=== PATIENT | male | born 1980 | race Caucasian/White ===

== ENCOUNTER 2017-03-01 02:25 | Observation (INO) | payer OTHER ==
[~2017-03-01] VITALS: Ht 193 cm; Wt 130.0 kg
[2017-03-01] VITALS (8 sets, daily range): BP systolic 99–117; BP diastolic 65–73; PULSE 71–92; RESP 16–20; TEMP 97.9–98.2; O2SAT 94–97
[~2017-03-01 02:25] MED LIST: IBUP1TAB7 PO; ORPH100T PO; TRAM50TA PO
[2017-03-01 06:58] LABS: CREATINE KINASE 65 U/L (39-308)
--- NOTE | 2017-03-01 08:45 | EKG ---
Date Performed: 03/01/2017 Time Performed: 06:10:43 PTAGE: 36 years EKG: Sinus rhythm NORMAL ECG No significant change from prior electrocardiogram. PREVIOUS TRACING : 03/01/2017 03.09 DOCTOR: Jasper Valdez Interpretating Date/Time 03/01/2017 08:44:06
[2017-03-01] MEDS ORDERED: NITROGLYCERIN 0.4 MG SL 25 TABS/BTL SL PRN (09:30)
[2017-03-01] MEDS ORDERED: SODIUM CHLORIDE 0.9% FLUSH 10 ML FLUSH IV FLUSH PRN (09:30)
[2017-03-01] MEDS ORDERED: ONDANSETRON HCL 4 MG/2 ML VIAL IV PUSH PRN (09:30)
[2017-03-01] MEDS ORDERED: ACETAMINOPHEN 500 MG CPLT PO PRN (09:30)
--- NOTE | 2017-03-01 09:30 | HHI.HP ---
HPI Primary Care Physician Non-Staff Chief Complaint Chest pain History of Present Illness 36-year-old male with history of COPD and current smoker presents to emergency room for further evaluation of chest pain. Onset last evening. Location substernal. Initially felt discomfort may be indigestion therefore took antacids without relief. Duration constant. No radiation of pain. No associated symptoms of nausea, vomiting, dyspnea, or diaphoresis. No known precipitating or relieving factors. Endorses more pain in the past. Seen and evaluated the last hospital last year complete an exercise stress test which was unremarkable. At that time he was told he had COPD. Review of Systems General: No fatigue,weakness, fever, chills, or recent illness change in appetite HEENT: No CARVAJAL, no vision changes, no nasal congestion or drainage, no dysphasia CV: As stated above. No current chest pain or pressure. RESP: No SOB, cough, wheeze, or recent URI. History of COPD. Current smoker. GI: No nausea or vomiting, bowel changes, diarrhea, constipation, pain, distention. No unintentional weight gain or weight loss : No dysuria, urgency, frequency EXT: No lower leg edema MS: No discomfort or change in ROM NEURO: No dizziness, difficulty with balance, LOC, motor/sensory deficits PSYCH: No anxiety, depression SKIN: No rashes, no concerning lesions Past Family Social History Allergies: Coded Allergies: No Known Allergies (Verified Allergy, Unknown, 03/01/17) Past Medical History COPD, kidney stones Past Surgical History Tonsillectomy Reported Medications Reported Meds & Active Scripts Active No Active Prescriptions or Reported Medications Family History Father multiple strokes beginning in early 50s. Social History No known hypertension and attention or diabetes. Known hyperlipidemia. Current smoker 1 pack/daily. Past cardiac testing Exercise stress test one year ago reported to be unremarkable. This is completed [place], [place] Physical Exam Vital Signs Vital Signs Date Time Temp Pulse Resp B/P (MAP) Pulse Ox O2 Delivery O2 Flow Rate FiO2 03/01/17 09:01 92 20 101/73 (82) 97 Nasal Cannula 2.00 03/01/17 07:16 71 16 99/66 (77) 97 Nasal Cannula 2.00 03/01/17 06:30 96 03/01/17 05:37 97 Room Air 03/01/17 05:33 98.1 82 16 112/65 (81) 94 Physical Exam GENERAL: Alert WN, WD, NAD, pleasant, male who appears older than stated age HEAD: NC, AT CV: RRR, without murmur, rub, gallop, no JVD, S1-S2 no S3-S4. RESP: Clear lungs throughout bilateral, no crackles, wheeze, rhonchi, symmetrical chest rise, nonlabored, able to speak in full sentences ABD: Soft, NT, ND, no masses, positive bowel tones EXT: Pulses +24, no dependent edema MS: Normal tone 4 extremities, no obvious deformities, full range of motion NEURO: CN II through CN XII grossly intact, motor strength 5/5 PSYCH: A+O 3, pleasant affect, appropriate speech, mood, insight and judgment SKIN: Normal turgor, normal texture, no lesions, no rashes Laboratory CBC WBC 13.9 otherwise unremarkable. CMP random glucose 127, otherwise unremarkable. x3 troponins less than 0.02 Laboratory Tests Test 03/01/17 06:12 Total Creatine Kinase 65 Troponin I LESS THAN 0.02 Imaging Chest xray interpreted by radiologist as no acute disease. Course EKG NSR, no st t segment changes Caprini VTE Risk Assessment Caprini VTE Risk Assessment: No/Low Risk (score <= 1) Caprini Risk Assessment Model Point Value = 1 Point Value = 2 Point Value = 3 Point Value = 5 Age 41-60 Minor surgery BMI > 25 kg/m2 Swollen legs Varicose veins or History of unexplained or recurrent spontaneous Oral contraceptives or hormone replacement Sepsis (< 1 month) Serious lung disease, including pneumonia (< 1 month) Abnormal pulmonary function Acute myocardial infarction Congestive heart failure (< 1 month) History of inflammatory bowel disease Medical patient at bed rest Age 61-74 Arthroscopic surgery Major open surgery (> 45 min) Laparoscopic surgery (> 45 min) Malignancy Confined to bed (> 72 hours) Immobilizing plaster cast Central venous access Age >= 75 History of VTE Family history of VTE Factor V Leiden Prothrombin [id number] Lupus anticoagulant Anticardiolipin antibodies Elevated serum homocysteine Heparin-induced thrombocytopenia Other congenital or acquired thrombophilia Stroke (< 1 month) Elective arthroplasty Hip, pelvis, or leg fracture Acute spinal cord injury (< 1 month) Prophylaxis Regimen Total Risk Factor Score Risk Level Prophylaxis Regimen 0-1 Low Early ambulation 2 Moderate Order ONE of the following: *Sequential Compression Device (SCD) *Heparin 5000 units SQ BID 3-4 Higher Order ONE of the following medications: *Heparin 5000 units SQ TID *Enoxaparin/Lovenox 40 mg SQ daily (WT < 150 kg, CrCl > 30 mL/min) *Enoxaparin/Lovenox 30 mg SQ daily (WT < 150 kg, CrCl > 10-29 mL/min) *Enoxaparin/Lovenox 30 mg SQ BID (WT < 150 kg, CrCl > 30 mL/min) AND/OR *Sequential Compression Device (SCD) 5 or more Highest Order ONE of the following medications: *Heparin 5000 units SQ TID (Preferred with Epidurals) *Enoxaparin/Lovenox 40 mg SQ daily (WT < 150 kg, CrCl > 30 mL/min) *Enoxaparin/Lovenox 30 mg SQ daily (WT < 150 kg, CrCl > 10-29 mL/min) *Enoxaparin/Lovenox 30 mg SQ BID (WT < 150 kg, CrCl > 30 mL/min) AND *Sequential Compression Device (SCD) Assessment and Plan Assessment and Plan #1 Chest pain-admitted chest pain center. Ruled out with 3 sets of EKGs, cardiac enzymes, and monitored overnight. Seen and evaluated by Dr. Jayden Ron. Obtain d-dimer. D-dimer unremarkable Will complete an exercise stress test morning. Patient will plan of care. #2 Tobacco use-is encouraged and stressed the importance of tobacco cessation. Instructed to quit smoking, especially with known COPD diagnoses. Adelia Chopra Mar 01, 2017 09:30
[2017-03-01] MEDS ORDERED: MORPHINE SULFATE 2 MG/ML INJ IV PRN (13:15)
[2017-03-01] MEDS ORDERED: ALPRAZolam 0.25 MG TAB PO PRN (13:15)
[2017-03-01] MEDS ORDERED: METOPROLOL TARTRATE 25 MG TAB PO SCH (13:30)
[2017-03-01] MEDS ORDERED: NITROGLYCERIN 2% OINT 1 GM PACKET TOPICAL SCH (14:00)
[2017-03-01] MEDS ORDERED: REGADENOSON INJ 0.4 MG/5 ML SYR ONE (16:46)
--- NOTE | 2017-03-01 17:41 | RADRPT ---
EXAM DATE/TIME: 03/01/2017 16:44 [facility] COMPARISON: No previous studies available for comparison. INDICATIONS : Substernal chest pain. Angina. DOSE: 35 mCi Tc99m Myoview at stress. 11 mCi Tc99m Myoview at rest. 0.4 mg Lexiscan STRESS SYMPTOMS: Dyspnea and facial flush. EJECTION FRACTION: 69% MEDICAL HISTORY : Chronic obstructive pulmonary disease. SURGICAL HISTORY : Tonsillectomy. ENCOUNTER: Initial ACUITY: 1 day PAIN SCALE: 4/10 LOCATION: Substernal chest TECHNIQUE: The patient underwent pharmacologic stress with infusion of prescribed dose. Continuous ECG tracing was monitored during stress. Gated SPECT imaging was performed after stress and conventional SPECT i maging was performed at rest. The examination was performed on a SPECT/CT scanner, both attenuation and non-corrected datasets were reviewed. FINDINGS: DISTRIBUTION: The maximum perfused segment at stress is in the lateral wall. PERFUSION STUDY: The pattern of perfusion at stress is within normal limits. GATED STUDY: There is intact wall motion and thickening without hypokinetic or dyskinetic segments. CONCLUSION: 1. No stress induced perfusion abnormality. 2. No focal wall motion abnormality. EF of 69%. RISK CATEGORY: Low (<1% Annual Mortality Rate) Kevin Sim MD on March 01, 2017 at 17:37 Board Certified Radiologist. This report was verified electronically.
--- NOTE | 2017-03-01 17:46 | HHI.DCPOC ---
Discharge Care Plan Diagnosis: (1) Atypical chest pain (2) Tobacco abuse Goals to Promote Your Health * To prevent worsening of your condition and complications * To maintain your health at the optimal level Directions to Meet Your Goals Take your medications as prescribed Follow your dietary instruction Follow activity as directed Keep your appointments as scheduled Take your immunizations and boosters as scheduled If your symptoms worsen call your PCP, if no PCP go to Urgent Care Center or Emergency Room Smoking is Dangerous to Your Health. Avoid second hand smoke Call the 24-hour hour crisis hotline for domestic abuse at Adelia Chopra Mar 01, 2017 17:46
[2017-03-01] MEDS ORDERED: TEMAZEPAM 15 MG CAP PO PRN (21:00)
[2017-03-01] MEDS ORDERED: SODIUM CHLORIDE 0.9% FLUSH 10 ML FLUSH IV FLUSH SCH (21:00)
[2017-03-02] MEDS ORDERED: ASPIRIN 325 MG TAB PO SCH (09:00)
[2017-03-02] MEDS ORDERED: LISINOPRIL 10 MG TAB PO SCH (09:00)
--- NOTE | 2017-03-02 10:55 | TR ---
Date Performed: 03/01/2017 Time Performed: 14:10:34 DOCTOR: Jarek Gu DRUG LIST: CLINICAL HISTORY: REASON FOR TEST: Chest pain REASON FOR ENDING: OBSERVATION: CONCLUSION: Tk protocol attempted. Stopped sec to leg fatigue. Maximum UX=397 Target HR Achi eved=80.0% Maximum SM=202/98. No reprod chest pain. No ectopy. No st segment changes. Normal bp respo nse. Godd exercise tolerance. Recovery quick and unremarkable. Suboptimal testing due to heart rate. COMMENTS: Conclusion: Normal treadmill exercise. No evidence of ischemia. test is suboptimal.
--- NOTE | 2017-03-02 12:59 | TR ---
Date Performed: 03/01/2017 Time Performed: 16:57:34 DOCTOR: Jarek Gu DRUG LIST: CLINICAL HISTORY: CHEST PAIN REASON FOR TEST: CHEST PAIN REASON FOR ENDING: OBSERVATION: CONCLUSION: Lexiscan stress test was performed under standard four minute protocol. Radionuclid e was injected one minute prior to ending the test. No electrocardiographic abormalities were present to suggest ischemia. Nuclear imaging and interpretation are pending. COMMENTS:
== END 2017-03-01 18:14 | disposition home or self-care (01) ==
LOC: NEPE 02:25 → NEDA 06:15 → NEPGCP 11:27
PROVIDERS: ADMIT Internal Medicine Interventional Cardiology; ATTEND Internal Medicine Interventional Cardiology
DX: R07.89 Other chest pain (principal); J44.9 Chronic obstructive pulmonary disease, unspecified; E78.5 Hyperlipidemia, unspecified; Z87.442 Personal history of urinary calculi; Z71.6 Tobacco abuse counseling
CPT/HCPCS: 71010; 78452; 80053; 80307; 81001; 82550; 83735; 84484; 85025; 85379; 85610; 85730; 93005; 93017; 96360; 99285; A9502; G0378; J2785; J7040